=== PATIENT | female | born 1990 ===

== ENCOUNTER → 2018-02-01 21:08 | Outpatient (REF) | payer OTHER, SELFPAY ==
[2018-02-05 11:08] LABS: QuantiFERON TB NEGATIVE (Negative)
[2018-02-07 13:44] LABS: Rapid Plasma Reagin NON-REACTIVE
== END ==
LOC: LAB 21:08
PROVIDERS: Visit Provider Family Medicine Adult Medicine
DX: Z00.00 Encounter for general adult medical examination without abnormal findings (principal)
CPT/HCPCS: 86480; 86592; 87591